=== PATIENT | male | born 1985 | race Caucasian/White ===

== ENCOUNTER 2023-08-10 13:13 | Outpatient (CLI) | payer SELFPAY | END 2023-08-10 13:14 | disposition home or self-care (01) | PROVIDERS: PCP Physician Assistant Medical; Visit Provider Physician Assistant Medical | DX: I10 Essential (primary) hypertension (principal); E78.5 Hyperlipidemia, unspecified; E66.01 Morbid (severe) obesity due to excess calories | CPT/HCPCS: 80053; 80061 ==

== ENCOUNTER 2023-09-05 09:12 | Emergency (ER) | payer SELFPAY ==
[2023-09-05 09:23] VITALS: BP 174/134; PULSE 77; RESP 18; TEMP 36.4; O2SAT 96; BMI 60.0
--- NOTE | 2023-09-05 09:45 | ED_ITS ---
HPI - General Adult General Chief complaint: Weakness Stated complaint: Body aches, weakness Time Seen by Provider: 09/05/23 09:37 Source: patient Mode of arrival: ambulatory Limitations: no limitations History of Present Illness HPI narrative: 38-year-old male coming in today because of elevated blood pressures. Patient has history of hypertension has not taken his blood pressure medications approximately 6 months. He stated that yesterday and today he just felt ?blah?. He feels more tired than usual. He denies chest pain or shortness of breath. No abdominal discomfort, no diarrhea or constipation, no fevers or chills. When his coworkers saw that his systolic blood pressure was above 200 they recommended he come to the ER. Past medical history is significant for hypertension, hyperlipidemia, morbid obesity, eczema. He denies tobacco use but does smoke marijuana regularly. Related Data Home Medications Medication Instructions Recorded Confirmed tralokinumab-ldrm 150 mg/mL 300 mg subcut Q2W 12/20/22 09/05/23 subcutaneous syringe (Adbry) Previous Rx's Medication Instructions Recorded tacrolimus 0.1 % topical ointment 1 applic topical BID #60 grams 05/30/23 (Protopic) lisinopril 40 mg tablet 40 mg PO QDAY #90 tabs 08/10/23 Allergies Allergy/AdvReac Type Severity Reaction Status Date / Time No Known Drug Allergies Allergy Verified 09/05/23 09:28 Review of Systems Status of ROS: Reports: 10 or more systems reviewed and unremarkable except as noted in History and below PFSH PFSH Medical History Witnessed episode of apnea ?R06.81 - Apnea, not elsewhere classified (ICD-10) Surgical History History of colonoscopy ?Z98.890 - Other specified postprocedural states (ICD-10) Family History Other Heart disease Stroke Social History Narrative: Has 1 child, Non-smoker, Alcohol ingestion 1-4 drinks/week, History of Marijuana use Smoking Status: Never smoker How often do you have a drink containing alcohol: 2-4 times a month AUDIT-C Alcohol total score: 2 Non-prescribed substance use: marijuana (any form) Exam Narrative: Exam Narrative: Morbidly obese patient in no acute distress. Alert and oriented. Answers questions appropriately. Mood and affect are appropriate. Thoughts are goal oriented and rational. No tangential or magical thinking noted. Patient speaks in full sentences without needing to catch his breath. Does not appear ill or toxic. HEENT: Normocephalic atraumatic. Pupils are equally round reactive to light. Extraocular muscles are intact. Conjunctivae are moist without any icterus noted. Moist mucous membranes. Neck is soft without any lymphadenopathy or thyromegaly. No masses are appreciated. Cardiovascular: Heart is regular rate and rhythm S1 and S2 are present without any murmurs. Lungs: Clear to auscultation bilaterally no wheezes rhonchi or rales are appreciated. Patient takes deep breaths without any discomfort. Abdomen: Soft and nontender nondistended with normal bowel sounds. Difficult to assess for organomegaly secondary to body habitus. Extremities: Bilateral lower extremities are without edema. Skin: Warm dry and intact. Const: Vital Signs, click to edit/add: Vital Signs - 24 hr 09/05/23 09:23 09/05/23 11:45 Temperature 97.5 F L Pulse Rate [Pulse Oximeter] 77 Respiratory Rate 18 Blood Pressure [Ri ght Forearm] 174/134 H 185/114 H Pulse Oximetry 96 Oxygen Delivery Me thod Room Air Course Course ED Course: Given the patient has had uncontrolled blood pressure for the last 6 months we did do blood work today to make sure he had no evidence of end-organ damage. His lab work was unremarkable. The only slight abnormality was that he had trace blood his 2-5 RBCs in his urine. If culture comes back positive I would recommend treatment for potential UTI. He did receive 1 dose of oral lisinopril while he was here. Vital Signs Vital signs: Initial Vital Signs Temperature 97.5 F L 09/05/23 09:23 Temperature Source Temporal Artery Scan 09/05/23 09:23 Pulse Rate 77 09/05/23 09:23 Respiratory Rate 18 09/05/23 09:23 Blood Pressure 174/134 H 09/05/23 09:23 Blood Pressure Mean 147 H 09/05/23 09:23 Blood Pressure Position Sitting 09/05/23 09:23 Pulse Oximetry 96 09/05/23 09:23 Oxygen Delivery Method Room Air 09/05/23 09:23 Vital Signs Temperature 97.5 F L 09/05/23 09:23 Pulse Rate 77 09/05/23 09:23 Respiratory Rate 18 09/05/23 09:23 Blood Pressure 174/134 H 09/05/23 09:23 Pulse Oximetry 96 09/05/23 09:23 Oxygen Delivery Method Room Air 09/05/23 09:23 Temperature 97.5 F L 09/05/23 09:23 Pulse Rate 77 09/05/23 09:23 Respiratory Rate 18 09/05/23 09:23 Blood Pressure 185/114 H 09/05/23 11:45 Pulse Oximetry 96 09/05/23 09:23 Oxygen Delivery Method Room Air 09/05/23 09:23 Medical Decision Making MDM Narrative Medical decision making narrative: 38-year-old male with uncontrolled hypertension. We discussed the importance of him taking his medications. He states that he has a prescription for them he just needs to go pick them up. He tells me that he can afford to cook pickled meat his prescription at this time. Lab Data Lab results reviewed: Yes I reviewed the patient's lab results Labs: Lab Results 09/05/23 09/05/23 09/05/23 Range/Units 09:43 10:23 11:00 WBC 12.35 H (4.50-11.00) K/uL RBC 5.44 (4.30-5.90) m/uL Hgb 13.7 (13.5-17.5) gm/dL Hct 42.6 (37.0-53.0) % MCV 78 L (80-100) fL MCH 25 L (26-34) pg MCHC 32 (32-36) gm/dL RDW Coeff of Smita 14.6 (11.5-15.5) % Plt Count 290 (140-440) K/uL Neut % (Auto) 62.2 (42.0-72.0) % Lymph % (Auto) 21.1 (20-44) % [place] % (Auto) 8.7 (0.0-11.0) % Eos % (Auto) 5.9 (0.0-7.0) % Baso % (Auto) 0.1 (0.0-3.0) % Neut # (Auto) 7.70 H (1.7-7.0) K/uL Lymph # (Auto) 2.60 (0.90-2.90) K/uL [place] # (Auto) 1.10 H (0.00-0.90) K/UL Eos # (Auto) 0.70 H (0.00-0.50) K/uL Baso # (Auto) 0.00 (0.00-0.30) K/uL Abs Immat Gran (auto) 0.20 (0.00-0.30) K/uL Imm/Tot Granulo (auto) 2.0 % Sodium 139 (135-149) mmol/L Potassium 3.7 (3.6-5.1) mmol/L Chloride 102 (96-114) mmol/L Carbon Dioxide 29 (20-32) mmol/L Anion Gap 8 (7-15) mEq/L BUN 10 (5-24) mg/dL Creatinine 0.8 (0.5-1.5) mg/dL Estimated Creat Clear 129.27 Estimated GFR 116 ml/min Glucose 94 (60-115) mg/dL Calcium 8.9 (8.4-10.6) mg/dL Total Bilirubin 0.7 (0.1-1.5) mg/dL Direct Bilirubin 0.0 (0.0-0.5) mg/dL AST 41 H (12-35) U/L ALT 38 (4-50) U/L Alkaline Phosphatase 89 (40-150) U/L Total Protein 7.8 (6.0-8.3) g/dL Albumin 4.0 (3.3-5.0) g/dL Urine Color Yellow (Yellow) Urine Appearance Clear (Clear) Urine pH 6.0 (5.0-8.5) Ur Specific [place] 1.025 (1.000-1.030) Urine Protein Trace A (Negative) Urine Glucose (UA) Negative (Negative) Urine Ketones Negative (Negative) Urine Blood Trace-intact A (Negative) Urine Nitrite Negative (Negative) Urine Bilirubin Negative (Negative) Urine Urobilinogen 0.2 (0.2-1.0) Ur Leukocyte Esterase Negative (Negative) Urine RBC 2-5 A (0-2) Urine WBC 0-2 (0-5) Urine WBC Clumps None (None) Ur Squamous Epith Cells Few (None-Few) Amorphous Sediment Few A (None) Urine Bacteria None (None) SARS-CoV-2 (PCR) Negative SARS-CoV-2 (Negative) Discharge Plan Discharge Clinical Impression: Hypertension Patient Disposition: Home, Self-Care Condition: Stable Additional Instructions: Please start your medications follow-up with your primary care provider. Prescriptions: No Action Adbry 150 mg/mL syringe 300 mg subcut Q2W Rx Instructions: administer as 2 consecutive 150 mg injections tacrolimus [Protopic] 0.1 % ointment 1 applic topical BID Qty: 60 2RF lisinopril 40 mg tablet 40 mg PO QDAY Qty: 90 0RF Follow Up/Referrals: Lissette Hoskins PA-C [Primary Care Provider] - Stand Alone Forms: [facility] Info Instructions
[2023-09-05] MEDS: lisinopriL 20 MG TABLET 40 MG PO (10:18)
[2023-09-05 10:32] LABS: Basophils Percent Auto 0.1 % (0.0-3.0); Eosinophils Percent Auto 5.9 % (0.0-7.0); Hematocrit 42.6 % (37.0-53.0); Hemoglobin* 13.7 gm/dL (13.5-17.5); Lymphocytes Percent Auto 21.1 % (20-44); Mean Corpuscular HGB Conc 32 gm/dL (32-36); Mean Corpuscular Hemoglobin 25 pg (26-34); Mean Corpuscular Volume 78 fL (80-100); Monocytes Percent Auto 8.7 % (0.0-11.0); Neutrophils Percent Auto 62.2 % (42.0-72.0); Platelet Count* 290 K/uL (140-440); RDW Coefficient of Variation % 14.6 % (11.5-15.5); Red Blood Count 5.44 m/uL (4.30-5.90); White Blood Count* 12.35 K/uL (4.50-11.00)
[2023-09-05 10:44] LABS: Chloride* 102 mmol/L (96-114)
[2023-09-05 10:45] LABS: Potassium* 3.7 mmol/L (3.6-5.1); Slide Review Reflex No; Sodium* 139 mmol/L (135-149)
[2023-09-05 10:47] LABS: Anion Gap 8 mEq/L (7-15); Aspartate Amino Transferase* 41 U/L (12-35); Bilirubin Total* 0.7 mg/dL (0.1-1.5); Carbon Dioxide* 29 mmol/L (20-32); Creatinine* 0.8 mg/dL (0.5-1.5); Est. Creatinine Clearance* 129.27; Estimated Glomerular Filt Rate 116 ml/min; Total Protein* 7.8 g/dL (6.0-8.3)
[2023-09-05 10:48] LABS: Alanine Aminotransferase* 38 U/L (4-50); Alkaline Phosphatase* 89 U/L (40-150); Blood Urea Nitrogen* 10 mg/dL (5-24); Calcium* 8.9 mg/dL (8.4-10.6); Glucose* 94 mg/dL (60-115)
[2023-09-05 11:08] LABS: SARS PCR* Negative SARS-CoV-2 (Negative)
[2023-09-05 11:38] LABS: Appearance Urine Clear (Clear); Color Urine Yellow (Yellow)
[2023-09-05 11:39] LABS: Bilirubin Urine Negative (Negative); Blood Urine Trace-intact (Negative); Glucose Urine Negative (Negative); Ketones Urine Negative (Negative); Specific Gravity Urine 1.025 (1.000-1.030)
[2023-09-05 11:40] LABS: Leukocyte Esterase Urine Negative (Negative); Nitrite Urine Negative (Negative); Protein Urine Trace (Negative); Urobilinogen Urine 0.2 (0.2-1.0)
[2023-09-05 11:41] LABS: Amorphous Sediment Urine Few; Squamous Epithelial Cell Urine Few (None-Few); WBC Urine 0-2 (0-5)
[2023-09-05 11:45] VITALS: BP 185/114
== END 2023-09-05 11:59 | disposition home or self-care (01) ==
PROVIDERS: Emergency Provider Family Medicine; PCP Physician Assistant Medical
DX: I10 Essential (primary) hypertension (principal)
CPT/HCPCS: 36415; 80048; 80076; 81001; 85025; 87086; 87635; 99283; 99284; A9270

== ENCOUNTER 2024-08-13 12:07 | Outpatient (CLI) | payer BC, SELFPAY ==
--- OUTSIDE RECORDS SUMMARY | 2024-08-13 12:09 | XMS_ITS | Clinical Summary ---
Author Organization [facility] Address [place], [place] [address] Care Team Providers Care Reconciliation Specialist Name Role Phone Clinic, No Pcp Or Primary Care Provider Unavaila ble Allergies No known active allergies Medications Medication Sig Dispensed Refills Start Date End Date Status Ventolin HFA 90 mcg/actuation inhaler INHALE 2 PUFFS EVERY 4-6 HOURS NEEDED FOR SHORTNESS OF BREATH OR WHEEZING* 11/16/2023 Active amLODIPine (NORVASC) 10 mg tablet take 1 tablet by mouth once daily* 11/16/2023 Active losartan-hydrochlor othiazide (HYZAAR) 100-12.5 mg tablet take 1 tablet by mouth once daily* 11/17/2023 Active triamcinolone 0.5% (ARISTOCORT) 0.5 % cream applyc topically twice a day* 11/16/2023 Active tacrolimus 0.1% (PROTOPIC) 0.1 % ointment Apply topically to affected area(s) two times daily. 02/28/2024 Active acetaminophen (TYLENOL EXTRA STRGTH) 500 mg tablet Take 2 Tablets (1,000 mg) by mouth every 6 hours if needed for Pain. Max acetaminophen dose: 4000mg in 24 hrs. 02/28/2024 Active ibuprofen (ADVIL; MOTRIN) 200 mg tablet Take 2-3 Tablets (400-600 mg) by mouth once daily if needed for Pain. 02/28/2024 Active medication order composerIndications :Chronic bilateral low back pain with bilateral sciatica,Medical cannabis use Certified for [place] medical cannabis 02/28/2024 Active Active Problems Problem Noted Date Diagnosed Date Benign essential HTN 02/28/2024 Chronic bilateral low back pain with bilateral s ciatica 02/28/2024 Class 3 severe obesity due t o excess calories with serious comorbidity and body mass index (BMI) of 60.0 to 69.9 in adult 02/28/2024 Medical cannabis use 02/28/2024 Chronic pain of right knee 02/28/2024 Immunizations Name Administration Dates Next Due COVID-19 vaccine (Moderna 100mcg/0.5mL) JEAN CLAUDE GAITAN 04/01/2021,03/05/2021 Family History Medical History Relation Name Comments Diabetes type II Brother 1 Antony ADD / ADHD Brother 2 Alberto Drug Abuse Brother 2 Alberto Alcoholism Father Hypertension Mother Mental retardation Sister Luz Relation Name Status Comments Brother 1 Antony Brother 2 Alberto Alive Father Mother Sister Luz Alive Social History Tobacco Use Types Packs/Day Years Used Date Smoking Tobacco: Never Smokeless Tobacco: Never Alcohol Use Standard Drinks/Week Comments Yes 0 (1 standard drink = 0.6 oz pur e alcohol) 1-2 drinks per month Social Connections Answer Date Recorded Frequency of Communication with Friends and Fami ly 4 02/28/2024 Financial Resource Strain Answer Date R ecorded Difficulty of Paying Living Expenses 3 02/28/2024 Difficulty of Paying Living Expenses Not on file 02/28/2024 Food Insecurity Answer Date Recorded Worried About Running Out of Food in the Last Ye ar 1 02/28/2024 Transportation Needs Answer Date Record ed Lack of Transportation (Medical) 1 02/28/2024 Housing Stability Answer Date Recorded Unable to Pay for Housing in the Last Year 1 02/28/2024 Sex and Gender Information Value Date Recorded Sex Assigned at Not on file Gender Identity Not on file Sexual Orientation Not on file Obstetrics History Last Filed Vital Signs Vital Sign Reading Time Taken Comments Blood Pressure 168/105 02/28/2024 5:24 PM CDT Pulse 77 02/28/2024 5:19 PM CDT Temperature 36.5 ??C (97.7 ??F) 01/17/2024 8:03 AM CS T Respiratory Rate 22 01/17/2024 8:03 AM PANEL MONITOR Oxygen Saturation 95% 02/28/2024 5:19 PM CDT Inhaled Oxygen Concentration - - Weight 194.6 kg (429 lb 1.6 oz) 02/28/2024 5:19 PM CDT Height 177.8 cm (5' 10) 01/17/2024 8:01 AM PANEL MONITOR Body Mass Index 61.57 01/17/2024 8:01 AM PANEL MONITOR Plan of Treatment Health Maintenance Due Date Last Done Comments Tdap 02/22/1996 Depression screening for age 12+ 1997 HIV for age 15-65 02/22/2000 BMI (ht and wt on same day) for age 18+ 2003 Hepatitis C screening for ag e 18-79 2003 Tetanus booster 2005 Lipids for age 35-44 02/22/2020 COVID-19 vaccine series ( season) 2024 04/01/2021, 03/05/2021 Influenza for age 9-49 07/14/2024 Pneumococcal series for age 6-64 Aged Out No longer eligible b ased on patient's age to complete this topic Care Teams Reconciliation Specialist Relationship Specialty Start Date End Date Clinic, No Pcp Or . PCP - General 02/10/17
--- OUTSIDE RECORDS SUMMARY | 2024-08-13 12:10 | XMS_ITS | Referral Summary ---
Author Organization [facility] Address [address] [place] [id number] Care Team Providers Care Wood Pile Driver Operator Name Role Phone Unavailable Primary Care Provider Unavailabl e Encounters Date Type Department Care Team Description 08/13/2024 Transcribe Orders GENERIC EXTERNAL DATA DEPARTMENT Provider, Generic External Data Drug-induced obesity (Primary Dx) from Last 3 Months Allergies No known active allergies Medications Medication Sig Dispensed Refills Start Date End Date Status lisinopril (ZESTRIL) 40 MG tablet Take 40 mg by mouth daily 02/20/2021 Active silver sulfADIAZINE (SILVADENE) 1 % external creamIndications:Foot pain, bilateral,Ingrown nail of great toe of right foot,Ingrown nail of great toe of left foot Apply topically 2 times daily 25 g 1 03/10/2021 Active Active Problems Problem Noted Date Diagnosed Date Morbid obesity 03/10/2021 Social History Tobacco Use Types Packs/Day Years Used Date Smoking Tobacco: Former Smokeless Tobacco: Never Adolescent Education Answer Date Record ed Getting School Help Needed Not on file 08/05 Sex and Gender Information Value Date Recorded Sex Assigned at Not on file Gender Identity Not on file Sexual Orientation Not on file Last Filed Vital Signs Vital Sign Reading Time Taken Comments Blood Pressure 122/84 03/10/2021 3:48 PM CDT Pulse - - Temperature - - Respiratory Rate - - Oxygen Saturation - - Inhaled Oxygen Concentration - - Weight 177.8 kg (392 lb) 03/10/2021 3:48 PM CDT Height 177.8 cm (5' 10) 03/10/2021 3:48 PM CDT Body Mass Index 56.25 03/10/2021 3:48 PM CDT Plan of Treatment Not on file
--- OUTSIDE RECORDS SUMMARY | 2024-08-13 12:10 | XMS_ITS | Clinical Summary ---
Author Organization [facility] Address [address] [place] [id number] Care Team Providers Care Atm Manager Name Role Phone Unavailable Primary Care Provider Unavailabl e Allergies No known active allergies Medications Medication [...] Noted Date Diagnosed Date Morbid obesity 03/10/2021 Encounters Date Type Department Care Team Description 08/13/2024 Transcribe Orders GENERIC EXTERNAL DATA DEPARTMENT Provider, Generic External Data Drug-induced obesity (Primary Dx) from Last 3 Months Social History Tobacco Use Types Packs/Day Years [...]
--- OUTSIDE RECORDS SUMMARY | 2024-08-13 12:10 | XMS_ITS | Encounter Summary ---
Author Organization [facility] Address [facility] [place] [address] Care Team Providers Care Gas Station Operator Name Role Phone Unavailable Primary Care Provider Unavailabl e Reason for Referral * Consultation (Routine) - Pending Review Specialty Diagnoses / Procedures Referred By Contac t Referred To Contact Bariatric Diagnoses Drug-induced obesity Generic External Data Department Referral ID Status Reason Start Date Expiration Date V isits Requested Visits Authorized [id number] Pending Review 08/13/2024 08/13/2025 1 1 Question Answer Reason for Referral: Bariatric Surgery Scheduling Instructions: [facility] will call you to coordinate your care as prescribed by the provider. If you don? t hear from a veterans contact representative within 2 business days, please call . Recommendations: You are being referred to the [facility]. There are multiple options for treating the medical condition obesity. One of the these choices is weight loss surgery. To learn more about surgical treatment of obesity, visit [email or web address]. These videos explain qualifications, overall process, various procedure options and next steps, with a simple quiz at the end of each to complete. If you know you want surgery, viewing the videos is required before your first visit to [facility]. If you are undecided or don't know what the best pathway is for you, we still recommend you watch the videos. If you are interested in non-surgical options only, you do not need to view the videos.. Additional Information: in onbase, bmi 66 Comments For CWMP from [facility] Please be aware that coverage of these services is subject to the terms and limitations of your health insurance plan. Call member services at your health plan with any benefit or coverage questions. [employer] [facility] will call you to coordinate your care as prescribed by the provider. If you don? t hear from a veterans contact representative within 2 business days, please call . You are being referred to the [facility]. There are multiple options for treating the medical condition obesity. One of the these choices is weight loss surgery. To learn more about surgical treatment of obesity, visit [email or web address]. These videos explain qualifications, overall process, various procedure options and next steps, with a simple quiz at the end of each to complete. If you know you want surgery, viewing the videos is required before your first visit to [facility]. If you are undecided or don't know what the best pathway is for you, we still recommend you watch the videos. If you are interested in non-surgical options only, you do not need to view the videos.. Encounter Details Date Type Department Care Team (Late st Contact Info) Description 08/13/2024 Transcribe Orders GENERIC EXTERNAL DATA DEPARTMENT Provider, Generic External Data Drug-induced obesity (Primary Dx) Social History Tobacco Use Types Packs/Day Years Used Date Smoking Tobacco: Former Smokeless Tobacco: Never Adolescent Education Answer Date Record ed Getting School Help Needed Not on file 08/05 Sex and Gender Information Value Date Recorded Sex Assigned at Not on file Gender Identity Not on file Sexual Orientation Not on file documented as of this encounter Plan of Treatment Scheduled Referrals Name Type Priority Associated Diagnoses Orde r Schedule Adult [facility] Senior Clinical Data Analyst Referral Referral Routine Drug-induced obesity Expected: 08/13/2024 (Approximate), Expires: 08/13/2025 documented as of this encounter Visit Diagnoses Diagnosis Drug-induced obesity- Primary Obesity, unspecified documented in this encounter
--- NOTE | 2024-08-13 12:15 | CRLHL7_ITS ---
For Patients: As a result of the Century Cures Act, medical imaging exams and procedure reports are released immediately into your electronic medical record. You may view this report before your referring provider. If you have questions, please contact your health care provider. INDICATION: localized edema COMPARISON: none TECHNIQUE: A compression venous ultrasound exam was performed of both lower extremities using stock scale imaging, color Doppler and spectral Doppler analysis. FINDINGS: Sonographic imaging of the lower extremities demonstrates normal compressibility and color Doppler venous blood flow within the common femoral, deep femoral, and proximal greater saphenous veins. Within the thighs the femoral veins are patent and compressible. At a lower level the popliteal and posterior tibial veins also show normal compressibility and color Doppler venous blood flow. IMPRESSION: Normal venous ultrasound exam. No evidence of deep vein thrombosis within either the left or right lower extremity. Dictated by Edgar Dickson MD @ 08/13/2024 10:26:09 PM (Electronically Signed)
== END 2024-08-13 12:08 | disposition home or self-care (01) ==
LOC: US 12:08
PROVIDERS: PCP Physician Assistant Medical; Visit Provider Physician Assistant Medical
DX: R60.0 Localized edema (principal)
CPT/HCPCS: 93970

== ENCOUNTER 2024-08-21 09:50 | Outpatient (CLI) | payer BC, SELFPAY ==
--- OUTSIDE RECORDS SUMMARY | 2024-08-21 09:53 | XMS_ITS | Clinical Summary ---
Author Organization [facility] Address [address] [place] [address] Care Team Providers Care Change Management Expert Name Role Phone Unavailable Primary Care Provider [...]
--- OUTSIDE RECORDS SUMMARY | 2024-08-21 09:53 | XMS_ITS | Clinical Summary ---
Author Organization [employer] [facility] Address [place], [place] [address] Care Team Providers Care Fiber Optics Engineer Name Role Phone Clinic, No Pcp Or [...] with bilateral sciatica,Medical cannabis use Certified for [place] medical cannabis 02/28/2024 Active Active Problems Problem [...] T Respiratory Rate 22 01/17/2024 8:03 AM SILK SCREENER Oxygen Saturation 95% 02/28/2024 5:19 PM CDT Inhaled Oxygen Concentration - - Weight 194.6 kg (429 lb 1.6 oz) 02/28/2024 5:19 PM CDT Height 177.8 cm (5' 10) 01/17/2024 8:01 AM SILK SCREENER Body Mass Index 61.57 01/17/2024 8:01 AM SILK SCREENER Plan of Treatment Upcoming Encounters Date Type Department Care Team (Late st Contact Info) Description 08/21/2024 10:00 AM CDT Ancillary Procedure [facility] [address] [place] [address] Health Maintenance Due Date Last Done Comments [...] age to complete this topic Care Teams Fiber Optics Engineer Relationship Specialty Start Date End Date Clinic, No Pcp Or . PCP - General 02/10/17
--- OUTSIDE RECORDS SUMMARY | 2024-08-21 09:53 | XMS_ITS | Referral Summary ---
Author Organization [facility] Address [address] [place] [address] Care Team Providers Care Laundry Superintendent Name Role Phone Unavailable Primary Care Provider [...]
--- OUTSIDE RECORDS SUMMARY | 2024-08-21 09:53 | XMS_ITS | Encounter Summary ---
Author Organization [place] Address [facility] [place] [address] Care Team Providers Care Marine Safety Officer Name Role Phone Unavailable Primary Care Provider Unavailabl e Reason for Referral * Consultation (Routine) - Pending Review Specialty Diagnoses / Procedures Referred By Contac t Referred To Contact Bariatric Diagnoses Drug-induced obesity Generic External Data Department Referral ID Status Reason Start Date Expiration Date V isits Requested Visits Authorized [id number] Pending Review 08/13/2024 08/13/2025 1 1 Question Answer Reason for Referral: Bariatric Surgery Scheduling Instructions: [facility] will call you to coordinate your care as prescribed by the provider. If you don? t hear from a malt liquors sales representative within 2 business days, please call [...] onbase, bmi 66 Comments For CWMP from [facility] Please be aware that coverage of these services is subject to the terms and limitations of your health insurance plan. Call member services at your health plan with any benefit or coverage questions. [employer] [facility] will call you to coordinate your care as prescribed by the provider. If you don? t hear from a [employer] sales representative within 2 business days, please call . You are being referred to the [facility]. There are multiple options for treating the medical condition obesity. One of the these choices is weight loss surgery. To learn more about surgical treatment of obesity, visit [email or web address]. These videos explain qualifications, overall process, various [...] Orde r Schedule Adult [facility] Carbon Plant Grinder Referral Referral Routine Drug-induced obesity Expected: 08/13/2024 (Approximate), Expires: 08/13/2025 documented as of this encounter Visit Diagnoses Diagnosis Drug-induced obesity- Primary Obesity, unspecified documented in this encounter
== END 2024-08-21 09:51 | disposition home or self-care (01) ==
LOC: RAD 09:51
PROVIDERS: PCP Physician Assistant Medical; Visit Provider Physician Assistant Medical
DX: R60.0 Localized edema (principal); R06.02 Shortness of breath
CPT/HCPCS: 93306

== ENCOUNTER 2024-11-27 07:14 | Outpatient (CLI) | payer BC, SELFPAY | END 2024-11-27 07:15 | disposition home or self-care (01) | LOC: AMB 12-11 17:51 | PROVIDERS: PCP Physician Assistant Medical; Visit Provider Family Medicine | DX: M54.9 Dorsalgia, unspecified (principal) | CPT/HCPCS: A0425; A0427 ==

== ENCOUNTER 2024-11-27 07:44 | Emergency (ER) | payer BC, SELFPAY ==
--- OUTSIDE RECORDS SUMMARY | 2024-11-27 07:46 | XMS_ITS | Referral Summary ---
Author Organization [facility] Address [address] [place] [id number] Care Team Providers Care Crt Name Role Phone Unavailable Primary Care Provider Unavailabl e Allergies No known active allergies Medications lisinopril (ZESTRIL) 40 MG tablet Take 40 mg by mouth daily 1 Active silver sulfADIAZINE (SILVADENE) 1 % external creamIndications: Foot pain, bilateral,Ingrown nail of great toe of right foot,Ingrown nail of great toe of left foot Apply topically 2 times daily 25 g 1 1 Active Active Problems Problem Noted Date Diagnosed Date Morbid obesity 03/10/2021 Social History Tobacco Use Types Packs/Day Years Used Date Smoking Tobacco: Former Smokeless Tobacco: Never Adolescent Education Answer Date Record ed Getting School Help Needed Not on file 08/05 Sex and Gender Information Value Date Recorded Sex Assigned at Not on file Legal Sex Male 9:56 AM CDT Gender Identity Not on file Sexual Orientation [...]
--- OUTSIDE RECORDS SUMMARY | 2024-11-27 07:46 | XMS_ITS | Clinical Summary ---
Author Organization [facility] Address [place], [place] [address] Care Team Providers Care Pipe Fitter Gas Pipe Name Role Phone Clinic, No Pcp Or Primary Care Provider Unavaila ble Allergies No known active allergies Medications Ventolin HFA 90 mcg/actuation inhaler INHALE 2 PUFFS EVERY 4-6 HOURS NEEDED FOR SHORTNESS OF BREATH OR WHEEZING* 4 Active amLODIPine (NORVASC) 10 mg tablet take 1 tablet by mouth once daily* 4 Active losartan-hydro chlorothiazide (HYZAAR) 100-12.5 mg tablet take 1 tablet by mouth once daily* 4 Active triamcinolone 0.5% (ARISTOCORT) 0.5 % cream applyc topically twice a day* 4 Active tacrolimus 0.1% (PROTOPIC) 0.1 % ointment Apply topically to affected area(s) two times daily. 4 Active acetaminophen (TYLENOL EXTRA STRGTH) 500 mg tablet Take 2 Tablets (1,000 mg) by mouth every 6 hours if needed for Pain. Max acetaminophen dose: 4000mg in 24 hrs. 4 Active ibuprofen (ADVIL; MOTRIN) 200 mg tablet Take 2-3 Tablets (400-600 mg) by mouth once daily if needed for Pain. 4 Active medication order composerIndica tions:Chronic bilateral low back pain with bilateral sciatica,Medic al cannabis use Certified for [place] medical cannabis 4 Active Active Problems Problem Noted Date Diagnosed [...] pur e alcohol) 1-2 drinks per month [facility] Utilities Answer Date Recorded Do you have trouble paying f or utilities (for example, heat, electricity, water, phone)? Yes 02/28/2024 Social Connections Answer Date Recorded Do you often feel lonely or isolated from those around you? 4 02/28/2024 Financial Resource Strain Answer Date R ecorded Difficulty of Paying Living Expenses 3 02/28/2024 Difficulty of Paying Living Expenses Not on file 02/28/2024 Food Insecurity Answer Date Recorded Do you worry your food will run out before you are able to buy more? 1 02/28/2024 Transportation Needs Answer Date Record ed Does lack of transportation keep you from medica l appointments? 1 02/28/2024 Does lack of transportation keep you from work, meetings or getting things that you need? 1 02/28/2024 Housing Stability Answer Date Recorded What is your housing situation today? 1 02/28/2024 Interpersonal Safety Answer Date Record ed Are you being hit, kicked, p ushed or yelled at (see row info)? No 01/17/2024 Interpersonal Safety Abuse 12 - 18 Not on file 01/17/2024 Interpersonal Safety Ambulatory Vulnerability No t on file 01/17/2024 Sex and Gender Information Value Date Recorded Sex Assigned at Not on file Legal Sex Male 6:33 PM CDT Gender Identity Not on file Sexual Orientation Not on file Obstetrics History Last Filed Vital Signs Vital Sign Reading Time Taken Comments Blood Pressure 168/105 02/28/2024 5:24 PM CDT Pulse 77 02/28/2024 5:19 PM CDT Temperature 36.5 C (97.7 F) 01/17/2024 8:03 AM ORDER PACKER Respiratory Rate 22 01/17/2024 8:03 AM ORDER PACKER Oxygen Saturation 95% 02/28/2024 5:19 PM CDT Inhaled Oxygen Concentration - - Weight 194.6 kg (429 lb 1.6 oz) 02/28/2024 5:19 PM CDT Height 177.8 cm (5' 10) 01/17/2024 8:01 AM ORDER PACKER Body Mass Index 61.57 01/17/2024 8:01 AM ORDER PACKER Plan of Treatment Health Maintenance Due Date [...] age 9-49 07/14/2024 Pneumococcal series for age 6-49 Aged Out No longer eligible b ased on patient's age to complete this topic Insurance [email or web address] Care Teams Pipe Fitter Gas Pipe Relationship Specialty Start Date End Date Clinic, No Pcp Or . PCP - General 02/10/17
--- OUTSIDE RECORDS SUMMARY | 2024-11-27 07:46 | XMS_ITS | Continuity of Care Document ---
Author Name [facility] User AnnaMN-a llowed Address Unknown Organization Unknown Address Unknown Procedures FILTER APPLIED:Only known Procedures with Onset Date within the last 5 years Procedure Date Procedure Provider Additiona l Information Status COMPLETE CBC W/AUTO DIFF WBC (51638) Completed SARS-COV-2 COVID-19 AMP PRB (48795) Completed METABOLIC PANEL TOTAL CA (17621) Completed HEPATIC FUNCTION PANEL (57886) Completed EMERGENCY DEPT VISIT LOW MDM (19392) Completed ROUTINE VENIPUNCTURE (93297) Completed URINALYSIS AUTO W/SCOPE (61083) Completed URINE CULTURE/COLONY COUNT (54313) Completed LIPID PANEL (36516) Comp leted COMPREHEN METABOLIC PANEL (18207) Completed Encounters FILTER APPLIED:Only known Encounters with Admission Date within the last 5 years Encounter Location Admission Discharge Billing Code Director Of Athletics [facility] Allegra Coppola
--- OUTSIDE RECORDS SUMMARY | 2024-11-27 07:46 | XMS_ITS | Clinical Summary ---
Author Organization [facility] Address [address] [place] [id number] Care Team Providers Care Clinical Services Manager Name Role Phone Unavailable Primary Care [...]
[2024-11-27 07:48] VITALS: BP 224/141; PULSE 82; RESP 24; TEMP 36.5; O2SAT 96; BMI 68.9
--- NOTE | 2024-11-27 08:17 | ED_ITS ---
HPI - General Adult General Chief complaint: Back Injury/Pain Stated complaint: Back pain Time Seen by Provider: 11/27/24 08:15 History of Present Illness HPI narrative: was driving to work when he developed right sided back pain down the right leg to ankle. was unable to ambulate due to pain and ems was called from his work. ems gave 75 mcg of fentanyl, bs was 190. is morbidly obese. has had similar symptoms in the past. did not take his antihypertensiv es this am. no trauma. 39-year-old man presenting to the emergency department with relatively abrupt onset of right-sided low back and leg pain. Due to pain he is unable to walk. EMS was called and received fentanyl. He does report having had low back pain before but nothing like this. Pain began as a bit of warm sensation maybe in the buttock on the right and then increasingly sharp and painful extending down his leg. It goes down his buttock and posterior thigh and then to the lateral aspect of the lower leg into his foot. Hard to find a comfortable position. I find him resting in bed on his right side. He says the pressure seems to help. There was no trauma. Rather elevated blood pressure on arrival today. Does note that he has not taken his medications this morning 1 of which would be amlodipine. Purchased his own CPAP and wears it. Related Data Home Medications ?Medication ?Instructions ?Recorded ?Confirmed bupropion HCl 300 mg 24 hr tablet, 300 mg PO QAM 06/10/24 08/12/24 extended release hydroxyzine HCl 25 mg tablet 25 mg PO BID PRN 06/10/24 08/12/24 duloxetine 30 mg capsule,delayed 30 mg PO DAILY 08/01/24 08/12/24 release sertraline 50 mg tablet 50 mg PO DAILY 08/01/24 08/12/24 [facility] .Route 08/05/24 08/12/24 Previous Rx's ?Medication ?Instructions ?Recorded albuterol sulfate 90 mcg/actuation 2 inh inhalation Q4-6H PRN 11/16/23 breath activated powder inhaler shortness of breath or wheezing #1 ea amlodipine 10 mg tablet 10 mg PO QDAY #90 tabs 11/16/23 triamcinolone acetonide 0.5 % 1 applic topical BID #30 grams 11/16/23 topical cream tacrolimus 0.1 % topical ointment 1 applic topical BID #60 grams 01/04/24 (Protopic) losartan 100 1 tab PO QDAY #90 tabs 02/29/24 mg-hydrochlorothiazide 12.5 mg tablet cephalexin 500 mg capsule 500 mg PO BID #20 caps 08/12/24 furosemide 20 mg tablet 20 mg PO QAM #30 tabs 08/12/24 Allergies Allergy/AdvReac Type Severity Reaction Status Date / Time No Known Drug Allergies Allergy Verified 11/27/24 07:47 Review of Systems Status of ROS: Reports: 6 or more systems reviewed and unremarkable except as noted in History and below [facility] Medical History Wheezing ?R06.2 - Wheezing (ICD-10) Witnessed episode of apnea ?R06.81 - Apnea, not elsewhere classified (ICD-10) Surgical History History of colonoscopy ?Z98.890 - Other specified postprocedural states (ICD-10) Family History Other Heart disease Stroke Social History Narrative: Has 1 child, Non-smoker, Alcohol ingestion 1-4 drinks/week, History of Marijuana use Smoking Status: Never smoker Do you use any of these nicotine containing products: Vaping Products Second hand tobacco smoke exposure: No How often do you have a drink containing alcohol: 2-4 times a month How many standard drinks containing alcohol do you have on a typical day: 1 or 2 How often do you have six or more drinks on one occasion: Never AUDIT-C Alcohol total score: 2 Non-prescribed substance use: marijuana (any form) service: No Exam Narrative: Exam Narrative: Pleasant. Clearly uncomfortable but not demonstrating greatly. Difficulty with transition. Sounds congested or thick in the nasopharynx. Abdomen is obese. Difficult to examine but reproducible pain to palpation through the right buttock and posterior thigh. Little weakness in the right leg I think related to pain. DTRs intact/normal. No pain to palpation in the SI joints are low back otherwise. Const: Vital Signs, click to edit/add: Vital Signs - 24 hr 11/27/24 07:48 Temperature 97.7 F Pulse Rate [Pulse Oximeter] 82 Respiratory Rate 24 Blood Pressure [Le ft Forearm] 224/141 H Pulse Oximetry 96 Oxygen Delivery Me thod Room Air Documenting provider has reviewed patient's vital signs: yes Course Vital Signs Vital signs: Initial Vital Signs Temperature 97.7 F 11/27/24 07:48 Temperature Source Temporal Artery Scan 11/27/24 07:48 Pulse Rate 82 11/27/24 07:48 Respiratory Rate 24 11/27/24 07:48 Blood Pressure 224/141 H 11/27/24 07:48 Blood Pressure Mean 168 H 11/27/24 07:48 Blood Pressure Position Sitting 11/27/24 07:48 Pulse Oximetry 96 11/27/24 07:48 Oxygen Delivery Method Room Air 11/27/24 07:48 Vital Signs Temperature 97.7 F 11/27/24 07:48 Pulse Rate 82 11/27/24 07:48 Respiratory Rate 24 11/27/24 07:48 Blood Pressure 224/141 H 11/27/24 07:48 Pulse Oximetry 96 11/27/24 07:48 Oxygen Delivery Method Room Air 11/27/24 07:48 Temperature 97.7 F 11/27/24 07:48 Pulse Rate 55 L 11/27/24 11:30 Respiratory Rate 24 11/27/24 07:48 Blood Pressure 224/141 H 11/27/24 07:48 Pulse Oximetry 95 11/27/24 11:30 Oxygen Delivery Method OxyMask 11/27/24 11:30 Oxygen Flow Rate 3 11/27/24 11:30 Medications Administered Medications: Discontinued Medications Generic Name Dose Route Start Last Admin Trade Name Tanya PRN Reason Stop Dose Admin Hydromorphone HCl 1 mg 11/27/24 08:32 11/27/24 08:53 Hydromorphone 0.5 Mg/0.5 Ml Inj IM 11/27/24 08:33 1 mg ONCE ONE Administration Ketorolac Tromethamine 60 mg 11/27/24 08:32 11/27/24 08:53 Ketorolac 60 Mg/2 Ml Inj IM 11/27/24 08:33 60 mg ONCE ONE Administration Prednisone 80 mg 11/27/24 08:32 11/27/24 08:53 Prednisone 20 Mg Tablet PO 11/27/24 08:33 80 mg ONCE ONE Administration Medical Decision Making MDM Narrative Medical decision making narrative: Some of this elevated blood pressure may be due to pain as well. Will try to control symptoms. I would suspect discogenic radicular pain given distribution. I suppose possible piriformis syndrome but this is not a chronic or indolent process and considering body habitus distribution more likely discogenic. I think it would be helpful to move this process along form if I could get a lumbar MRI today. It has been very busy in the emergency department but will try to do that. Will also try to control pain. Given injection of hydromorphone and ketorolac as well as oral prednisone. On reassessment is markedly improved. Did require a little oxygen support as sats dropped. Ultimately MRI was pushed back too for Mr. Almanza to wait any longer. He was ambulatory from the emergency department. See patient discharge plan for further discussion I think that it is likely that you have a herniated disc causing this pain. Prescribing you course of prednisone and I would take ibuprofen up to 800 mg per dose or alternatively up to 500 mg naproxen 2 times daily. With either of these you could take up to 1000 mg of acetaminophen per dose. Also will make available some opiate pain medicine from [facility]. Remember this can be sedating. [place] is not available as discussed and so I have prescribed some Percocet. Please follow-up with your primary care provider to make plan for next steps in evaluation and care. See handout on exercises you might try. Medical Records Medical records reviewed: Yes I reviewed the patient's medical records Discharge Plan Discharge Clinical Impression: Radicular pain of right lower extremity Patient Disposition: Home, Self-Care Condition: Improved Additional Instructions: I think that it is likely that you have a herniated disc causing this pain. Pr escribing you course of prednisone and I would take ibuprofen up to 800 mg per dose or alternatively up to 500 mg naproxen 2 times daily. With either of these you could take up to 1000 mg of acetaminophen per dose. Also will make available some opiate pain medicine from [facility]. Remember this can be sedating. [place] is not available as discussed and so I have prescribed some Percocet. Please follow-up with your primary care provider to make plan for next steps in evaluation and care. See handout on exercises you might try. Prescriptions: No Action triamcinolone acetonide 0.5 % cream 1 applic topical BID Qty: 30 0RF albuterol sulfate 90 mcg/actuation aerosol powdr breath activated 2 inh inhalation Q4-6H PRN (Reason: shortness of breath or wheezing) Qty: 1 3RF amlodipine 10 mg tablet 10 mg PO QDAY Qty: 90 3RF losartan-hydrochlorothiazide 100-12.5 mg tablet 1 tab PO QDAY Qty: 90 3RF [facility] [place] .Route Rx Instructions: .Routedaily furosemide 20 mg tablet 20 mg PO QAM Qty: 30 0RF cephalexin 500 mg capsule 500 mg PO BID Qty: 20 0RF tacrolimus [Protopic] 0.1 % ointment 1 applic topical BID Qty: 60 2RF sertraline 50 mg tablet 50 mg PO DAILY duloxetine 30 mg capsule,delayed release(DR/EC) 30 mg PO DAILY hydroxyzine HCl 25 mg tablet 25 mg PO BID PRN bupropion HCl 300 mg tablet extended release 24 hr 300 mg PO QAM Follow Up/Referrals: Lissette Hoskins PA-C [Primary Care Provider] - Stand Alone Forms: [facility] Info Instructions
[2024-11-27] MEDS: HYDROmorphone 0.5 mg/0.5 ml inj 1 MG IM (08:53)
[2024-11-27] MEDS: KETOROLAC 60 MG/2 ML inj IM (08:53)
[2024-11-27] MEDS: predniSONE 20 MG TABLET 80 MG PO (08:53)
[2024-11-27 10:56] VITALS: O2SAT 80
[2024-11-27 11:05] VITALS: PULSE 53; O2SAT 84
[2024-11-27 11:15] VITALS: PULSE 72; O2SAT 95
[2024-11-27 11:30] VITALS: PULSE 55; O2SAT 95
== END 2024-11-27 11:45 | disposition home or self-care (01) ==
PROVIDERS: Emergency Provider Family Medicine; PCP Physician Assistant Medical
DX: M54.16 Radiculopathy, lumbar region (principal)
CPT/HCPCS: 96372; 99283; 99284; J1171; J1885; J7512

== ENCOUNTER 2024-12-24 14:45 | Outpatient (CLI) | payer BC, SELFPAY | END 2024-12-24 14:46 | disposition home or self-care (01) | PROVIDERS: PCP Physician Assistant Medical; Visit Provider Physician Assistant Medical | DX: E78.5 Hyperlipidemia, unspecified (principal); I10 Essential (primary) hypertension; E66.01 Morbid (severe) obesity due to excess calories; Z68.43 Body mass index [BMI] 50.0-59.9, adult | CPT/HCPCS: 80053; 80061; 84443 ==

== ENCOUNTER 2024-12-31 09:28 | Outpatient (CLI) | payer BC, SELFPAY ==
--- NOTE | 2025-01-14 10:29 | W.PM.SLEEP ---
Sleep Study Details Details Interpreting Provider: Anna Date of Sleep Study: 12/31/24 Sleep Study Details: STUDY TYPE:? Home unattended ? BMI:? 66 ORDERING PROVIDER:Angel Hoskins INDICATION:? Concern about sleep apnea ? SLEEP SUMMARY:? 302 minutes monitored RESPIRATORY SUMMARY:? AHI 88.4 Low oxygen 76 13.8% of study oxygen less than 90% Snoring 98 PERIODIC LIMB MOVEMENTS OF SLEEP:? Not record CARDIAC:? Range 66-133, mean 80 beats per minute IMPRESSION:? Severe obstructive sleep apnea with significant hypo oxygenation, morbid obesity RECOMMENDATION: Weight loss is recommended Would recommend either an in-lab study which is favored versus an AutoSet CPAP. Patient may require ultimately bilevel.
== END 2024-12-31 09:29 | disposition home or self-care (01) ==
LOC: SLEEP 09:28
PROVIDERS: PCP Physician Assistant Medical; Visit Provider Physician Assistant Medical
DX: G47.33 Obstructive sleep apnea (adult) (pediatric) (principal)
CPT/HCPCS: 95806

== ENCOUNTER 2025-08-20 10:52 | Outpatient (CLI) | payer SELFPAY | END 2025-08-20 10:53 | disposition home or self-care (01) | PROVIDERS: PCP Physician Assistant Medical; Referring Provider Physician Assistant Medical; Visit Provider Family Medicine | DX: Z00.00 Encounter for general adult medical examination without abnormal findings (principal); Z13.29 Encounter for screening for other suspected endocrine disorder; Z13.6 Encounter for screening for cardiovascular disorders | CPT/HCPCS: 80053; 80061; 84443 ==